=== PATIENT | female | born 1955 | race Native Hawaiian/Other Pacific Islander ===

== ENCOUNTER 2017-02-23 20:43 | Emergency (ER) | payer OTHER ==
[~2017-02-23] VITALS: Ht 160 cm; Wt 56.7 kg
[2017-02-23 22:09] LABS: PLATELET COUNT 219 K/uL (152-353)
[2017-02-23] MEDS ORDERED: LEVO0.0218 PO (22:19)
[2017-02-23] MEDS ORDERED: SUMATRIPTAN50 MG PO (22:21)
[2017-02-23] MEDS ORDERED: QUETIAPINE300 MG PO (22:22)
[2017-02-23] MEDS ORDERED: PROM25TA52 PO (22:23)
[2017-02-23] MEDS ORDERED: SIMV10TA PO (22:23)
[2017-02-23] MEDS ORDERED: ZOFRAN8 MG PO (22:24)
[2017-02-23] MEDS ORDERED: REMERON SOLTAB15 MG PO (22:25)
[2017-02-23] MEDS ORDERED: DOXEPIN HCL10 MG PO (22:25)
[2017-02-23] MEDS ORDERED: DOXE25CA18 PO (22:26)
[2017-02-23] MEDS ORDERED: HYDROXYZ HCL50 MG PO (22:27)
[2017-02-23] MEDS ORDERED: OMEPRAZOLE20 M1 PO (22:28)
[2017-02-23] MEDS ORDERED: EQ ASPIRIN ADUL81 MG PO (22:29)
[2017-02-23] MEDS ORDERED: FLUOXETINE HCL10 M1 PO (22:29)
[2017-02-23] MEDS ORDERED: LEVO0.0529 PO (22:30)
[2017-02-23] MEDS ORDERED: METF100038 PO (22:31)
[2017-02-23] MEDS ORDERED: INSU100I2 SC (22:32)
[2017-02-23] MEDS ORDERED: MULTIVITAMI1 PO (22:32)
[2017-02-23 22:44] LABS: POTASSIUM 4.4 mmol/L (3.6-5.2); SODIUM 126 mmol/L (136-145)
[2017-02-24 00:35] VITALS: BP 134/68; TEMP 98.6
== END 2017-02-24 00:38 | disposition home or self-care (01) ==
LOC: ED 20:43
DX: R10.11 Right upper quadrant pain (principal); R74.8 Abnormal levels of other serum enzymes; M75.82 Other shoulder lesions, left shoulder; C22.8 Malignant neoplasm of liver, primary, unspecified as to type; F12.10 Cannabis abuse, uncomplicated
CPT/HCPCS: 36415; 80053; 80307; 81000; 85027; 96374; 96375; 99284; G0479; J1815; J1885; J2405; Q9963